=== PATIENT | female | born 1965 | race Caucasian/White ===

== ENCOUNTER 2021-10-05 10:17 | Outpatient (REF) | payer BC, SELFPAY ==
[2021-10-05 12:18] LABS: Mean Platelet Volume 11.3 fL (9.4-12.3); PLT CLUMP 1; SCAN SMEAR FLAG 1
[2021-10-05 12:20] LABS: Basophils Absolute Auto 0.1 X10*3/uL (0.0-0.2); Basophils Percent Auto 0.9 % (0-2); Eosinophils Absolute Auto 0.5 X10*3/uL (0.0-0.4); Eosinophils Percent Auto 6.4 % (0-4); Hematocrit 39.4 % (37.0-47.0); Imm Gran Abs Auto 0.04 X10*3/uL (0.00-0.03); Imm Gran Pct Auto 0.5 % (0.0-0.4); Lymphocytes Absolute Auto 2.2 X10*3/uL (1.2-4.9); Lymphocytes Percent Auto 28.3 % (20-40); MANUAL DIFF FLAG SCAN; Mean Corpuscular Hemoglobin 30.4 pg (27.0-33.0); Mean Corpuscular Volume 92.1 fL (80.0-98.0); Monocytes Absolute Auto 0.6 X10*3/uL (0.1-1.2); Monocytes Percent Auto 7.6 % (2-11); Neutrophils Absolute Auto 4.3 x10*3/uL (2.0-8.3); Neutrophils Percent Auto 56.3 % (45-73); Red Blood Count 4.28 X10*6/uL (4.20-5.50); Red Cell Distribution Width 12.2 % (11.0-16.0)
[2021-10-05 12:22] LABS: Platelet Count 235 X10*3/uL (160-400); White Blood Count 7.6 X10*3/uL (4.8-10.8)
[2021-10-05 12:38] LABS: D Dimer High Sensitivity < 150 NG/ML
[2021-10-05 12:43] LABS: SLIDE REVIEW VERIFIED
[2021-10-05 14:19] LABS: Anion Gap 12 (12-20); Blood Urea Nitrogen 8 mg/dL (9-16); Calcium 9.8 mg/dL (8.4-10.2); Carbon Dioxide 28 mmol/L (22-29); Chloride 105 mmol/L (96-108); Estimated Glomerular Filt Rate > 60; Glucose Random 94 mg/dL (60-115); Potassium 4.2 mmol/L (3.3-5.1); Sodium 141 mmol/L (135-145)
[2021-10-07 06:06] LABS: Immunoglobulin E 8 kU/L (<OR=114)
[2021-10-10 15:01] LABS: Cyclic Citrullinated Peptide <16 UNITS
[2021-10-12 06:42] LABS: Angiotensin Converting Enzyme 55 U/L (9-67)
== END 2021-10-05 10:18 | disposition home or self-care (01) ==
LOC: HO.LAB 10:17
PROVIDERS: PCP Internal Medicine; Visit Provider Hospitalist
DX: R06.00 Dyspnea, unspecified (principal); I42.8 Other cardiomyopathies; G47.33 Obstructive sleep apnea (adult) (pediatric); Z99.89 Dependence on other enabling machines and devices; Z79.899 Other long term (current) drug therapy
CPT/HCPCS: 36415; 80048; 82164; 82785; 85025; 85379; 86200

== ENCOUNTER 2021-11-07 12:36 | Outpatient (REF) | payer BC, SELFPAY ==
--- NOTE | 2021-11-07 | PFT_ITS ---
FLOWS: FEV1 97% of predicted at 2.54 L. FVC 90% of predicted at 2.99 L. FEV1 to FVC ratio of 0.85. No bronchodilator response. LUNG VOLUMES: Total lung capacity 96% of predicted at 4.74 L. Residual volume 91% of predicted at 1.68. Slow vital capacity 99% of predicted at 3.06 L. Expiratory reserve volume 50% of predicted at 0.46 L. Diffusion capacity is mildly decreased. IMPRESSION: No obstructive or restrictive ventilatory defect. No bronchodilator response. Isolated defect in diffusion capacity suggests underlying pulmonary parenchymal or vascular disease. Clinical correlation is advised. MD OSVALDO Olmstead/MODL / [id number]
== END 2021-11-07 12:37 | disposition home or self-care (01) ==
LOC: HO.RESP 12:36
PROVIDERS: PCP Internal Medicine; Visit Provider Hospitalist
DX: R06.00 Dyspnea, unspecified (principal)
CPT/HCPCS: 94060; 94727; 94729

== ENCOUNTER 2022-04-06 11:01 | Outpatient (REF) | payer BC, SELFPAY ==
--- NOTE | ~2022-04-06 | XR_ITS ---
EXAMINATION: XR CHEST CLINICAL INFORMATION: Dyspnea COMPARISON: None TECHNIQUE: 2 views of the chest were obtained. FINDINGS: The lungs are well-expanded. Heart size and pulmonary vascularity is normal. No gross bony abnormality seen. XR/XR chest 2V IMPRESSION: Unremarkable chest exam.
== END 2022-04-06 11:02 | disposition home or self-care (01) ==
LOC: HO.XRAY 11:01
PROVIDERS: PCP Internal Medicine; Visit Provider Hospitalist
DX: R06.00 Dyspnea, unspecified (principal); G47.33 Obstructive sleep apnea (adult) (pediatric); I42.8 Other cardiomyopathies; R94.2 Abnormal results of pulmonary function studies; Z99.89 Dependence on other enabling machines and devices
CPT/HCPCS: 71046; 94618

== ENCOUNTER → 2022-06-25 19:30 | Outpatient (REF) | payer BC, SELFPAY | LOC: HO.SL 19:30 | PROVIDERS: PCP Internal Medicine; Visit Provider Hospitalist | DX: G47.33 Obstructive sleep apnea (adult) (pediatric) (principal) | CPT/HCPCS: 95810 ==

== ENCOUNTER → 2023-01-12 10:23 | Outpatient (BNVA) | payer BC, SELFPAY | PROVIDERS: PCP Internal Medicine; Visit Provider Hospitalist | DX: Z13.89 Encounter for screening for other disorder (principal) ==

== ENCOUNTER 2023-01-29 09:59 | Outpatient (RCR) | payer BC, SELFPAY ==
[2023-01-29 10:40] VITALS: BP 100/58; PULSE 67
[2023-02-01 07:19] VITALS: BP 96/44
[2023-02-06 07:14] VITALS: BP 100/52; BP 96/54
[2023-02-08 07:25] VITALS: BP 120/60; BP 124/68
[2023-02-15 09:31] VITALS: BP 102/56; BP 114/68
[2023-02-20 07:30] VITALS: BP 108/60; BP 110/60
[2023-02-27 07:05] VITALS: BP 114/66; BP 114/68
[2023-03-01 07:35] VITALS: BP 110/50; BP 110/60
[2023-03-08 10:32] VITALS: BP 110/60; BP 115/55
[2023-03-13 07:33] VITALS: BP 110/50; BP 125/65
[2023-03-20 07:24] VITALS: BP 112/60; BP 112/62
--- NOTE | 2023-03-26 10:22 | MHC.PR.IN ---
[address] [phone] F: [phone] Pulmonary Rehabilitation Individual Treatment Plan Sommer Quintana is a 57 year old (F) who was referred to the Pulmonary Rehabilitation program by Tr Augustine. This patient who has a primary diagnosis of Post Covid syndrome will begin pulmonary rehabilitation with monitored exercise and education to optimize both physical and social performance, autonomy, increase strength and endurance, and control dypsnea. The following information was gathered from the patient: Smoking History Current smoking status: Never Smoked Years smoked: only smoke for 1 year Last time smoked: Quit Date: Assistance with quitting needed: Past Medical History Medical History: Cardiac Disorders Sleep Apnea Chronic Sinus Infection Depression Anxiety Other Surgeries: No Past Pulmonary Hospitalizations # of hospitalizations in the past year: 0 # of ER vists due to breathing troubles in the past year: 0 Current Pulmonary Medications Allergy History Allergies: Amoxicillin,Bacitracin,Augmentin,Cipro,Latex,Neomycin,Neosporin,Sulfa Current Oxygen Use Supplemental Oxygen Device Used: None Liter flow: How often: N/A Pulmonary History Cough: Yes: during allergy season Sputum: No Sleep device: Yes Other pulmonary devices: Peak flow meter: No Nebulizer: No Suction: No Ventilator: No Secretion clearance: No PEP: No Influenza vaccine: No Pneumonia vaccine: No Patient Questionaire Scores MRC Dyspnea Scale (mRC): 1 CAT Score: na PHQ-9 Score: 11 Pulmonary Function Test and Vital Signs Pulmonary Function Test Date of PFT 11/07/21 FVC Actual 3.02% FVC Predicted 3.31% FEV1 Actual 2.49% FEV1 Predicted 2.59% FEV1/FVC Actual 82% FEV1/FVC Predicted 79% DLCO 15.11 Vital Signs Heart Rate 67 Blood Pressure 100/58 SpO2 96% Respiratory Rate 11 unlabored Six Minute Walk Test Supplemental Oxygen O2 L/min: FiO2: Resting Vitals SpO2: 96% BP: 100/58mmHg HR: 67 bpm Total Distance 886 Number/ Time of Rests (sec) 0 SIA 1 METS 2.28 SpO2 94 HR (bpm) 88 MPH 1.66 Meters/Minute 45 Post-walk Vitals SpO2: 96 BP: 110/60 HR: 66 Performance Observations Walked at a moderate pace without stopping Pulmonary Rehabilitation Plan Topic Problem Goal Plan Comment Education Knowledge deficit of disease self management strategies Exacerbation prevention and management Home exercise program Hypoxia N/A, no s/s of hypoxemia Psychosocial Anxiety Depression Review screening results On medications currently Has trouble falling and staying asleep or sleeping too much, has trouble concentrating, Feeling tired has little energy, she feels bad about herself, she feels she is a failure and has let herself and her family down Activities of Daily Living ADL performance with pacing and pursed lip breathing Educate on pursed lip breathing and pacing with stairs and activity Nutrition & Weight Management Obese BMI 19 to 30 Lose weight during program Prevent further weight gain Education re ongoing weight monitoring BMI 34.3, Patients goal is to lose weight Tobacco Managment NA Patient states she smoked for one year only Medication N/A, pt reports compliance w/ prescribed medications Inhaled Medication N/A Secretion Management N/A, pt able to self manage secretions Exercise & Fitness Decreased strength & endurance Knowledge deficit of exercise guidelines & safety No regular exercise Pulmonary Rehab 2-3x/week Weight or resistance training 2-3x/week Aerobic Exercise: 30-60mins x 9 weeks Review benefits & core components of exercise program Review how to measure and monitor dyspnea level Review exercise safety guidelines Review frequency and duration of exercise Review exercise intensity SIA RPD 3-4/10 Review home exercise guidelines 5 minute warmup UBE Diabetes Management Does patient have DM?: No Diabetes Type: Current Blood Glucose Level: Current A1C Level: Self Check: Patient's Goals and Concerns Lose weight. Rn Lab Review I have reviewed the outcome assessment, treatment plan, goals, and problem list. The treatment plan and goals support the patient's needs and abilities, and thereby recommend that the exercise plan be completed as documented. Special precautions or modifications to the treatment plan include:
[2023-03-27 09:22] VITALS: BP 104/64; BP 112/58
[2023-03-27 09:26] VITALS: BMI 196.0
--- NOTE | 2023-03-27 09:43 | MHC.PR.RE ---
[address] [phone] F: [phone] Pulmonary Rehabilitation Reassessment Sommer Quintana is a 57 year old (F) who was referred to the Pulmonary Rehabilitation program by Tr Augustine. This patient who has a primary diagnosis of Post Covid syndrome has completed 11 sessions of the pulmonary rehabilitation program thus far with monitored exercise and education to optimize both physical and social performance, autonomy, increase strength and endurance, and control dypsnea. They were evaluated on 03/27/23. Reassessment Type: 60-day reassessment Topic Education/ Progress Progress Comments Education Demonstrates disease self-management strategies Using medications as directed Demonstrates strategies for anxiety and depression management Pt states she is feeling anxiety due to her fear of SOB being caused by something other than post covid. RT gave Thorough explanation/education of her PFT and lung volumes due to post COVID. Pt given education and demonstration on breathing techniques specific to post covid. Pt goals to progess on time/ METS during program Hypoxia Current oxygen Use: Room Air Pt does not use supplemental O2 at this time. Psychosocial PHQ-9 Score: 12 Score increased due to anxiety on lung disease. Living with lung disease education worksheet reviewed with patient. pt goals for coping with stress and anxiety are exercise, weight loss focus, meditation. Activities of Daily Living Management of ADL with Control of Dyspnea Progressing Pt progressing nicely with increased METs and exercise time. Nutrition & Weight Management Current weight: 200 BMI: 196 Weight change: Weight Loss 4lb weight loss from exercise Progressing Tobacco Stages of Change: Prepare for action Tobacco Use: Cigerettes/Day: Any nicotine replacement: Any cessation medication: Smoking quit date: Smokeless tobacco use and amount: Met Medication Met, taking 100% of time Met Inhaled Medication Patient verbalizes correct technique of: MDI: DPI: SMI: NEBULIZER: Pt does not used inhaled medications at this time. Met Secretion Management Patient provides adequate return demonstration of: Controlled cough: Yes Gomez cough: Acapella/ PEP Device: No CPT: No Sputum management: Met Exercise & Fitness Aerobic Exercise Frequency: 2-3X weekly Target heart range: 125 Heart rate range: 101-134 SpO2 Range: 92-100 SIA RPD: 0-3 Time (minutes): 50 minutes O2 use with exercise: Room air Current HEP: UBE L1.2 21 minutes RPD 0.5 2X weekly Recumbent bike L1.2 RPD 0.5 2x weekly Tether bands (yellow) 15 minutes 2X weekly 5 minute warmup 5 minute cooldown Pt has increased time from beginning the program at 33 minutes to 57 minutes 2X weekly. Pt given home program from long goods drier to perform on off days. Pt instructed to perform 5 minute warm up prior to exercise and 5 minute cooldown at the end of her workout. Pt has progressed on Mets and continues to, at each session Progressing Pediatrics Physician Review I have reviewed the outcome re-assessment and treatment plan. The treatment plan and goals support the patient's needs and abilities, and thereby recommend that the exercise plan be completed as documented. Special precautions or modifications to the treatment plan include:
[2023-03-29 07:57] VITALS: BP 98/54
[2023-04-03 08:40] VITALS: BP 110/60; BP 98/52
[2023-04-05 11:29] VITALS: BP 102/56; BP 110/68
[2023-04-10 08:47] VITALS: BP 100/52; BP 102/58
[2023-04-12 08:24] VITALS: BP 106/56; BP 92/58
[2023-04-17 08:34] VITALS: BP 108/42
[2023-04-19 08:19] VITALS: BP 102/54; BP 102/58
[2023-04-19 08:29] VITALS: BMI 194.0
--- NOTE | 2023-04-19 08:34 | MHC.PR.RE ---
[address] [phone] F: [phone] Pulmonary Rehabilitation Reassessment Sommer Quintana is a 57 year old (F) who was referred to the Pulmonary Rehabilitation program by Tr Augustine. This patient who has a primary diagnosis of Post Covid syndrome has completed 18 sessions of the pulmonary rehabilitation program thus far with monitored exercise and education to optimize both physical and social performance, autonomy, increase strength and endurance, and control dypsnea. They were evaluated on 04/19/23. Reassessment Type: 60-day reassessment Topic Education/ Progress Progress Comments Education Demonstrates disease self-management strategies Using medications as directed Demonstrates strategies for anxiety and depression management Progressing. Pt educated on nutrition DASH diet. RT gave Thorough explanation/education of her PFT and lung volumes due to post COVID. Pt given education and demonstration on breathing techniques specific to post covid. Pt goals to progess on time/ METS during program Hypoxia Current oxygen Use: Room air Pt does not use supplemental O2 at this time. Psychosocial PHQ-9 Score: 12 PT has recently started going to religious and states that has helped her and she now uses this as a coping technique. Activities of Daily Living Management of ADL with Control of Dyspnea Progressing Pt progressing nicely with increased METs and exercise time. Nutrition & Weight Management Current weight: 200 BMI: 194 Weight change: Weight Loss 4lb weight loss from exercise Progressing Tobacco Stages of Change: Prepare for action Tobacco Use: Cigerettes/Day: Any nicotine replacement: Any cessation medication: Smoking quit date: Smokeless tobacco use and amount: Pt is a non smoker Medication Met, taking 100% of time Inhaled Medication Patient verbalizes correct technique of: MDI: N/A DPI: N/A SMI: N/A NEBULIZER: N/A Pt does not used inhaled medications at this time. Secretion Management Patient provides adequate return demonstration of: Controlled cough: Yes Gomez cough: Acapella/ PEP Device: No CPT: No Sputum management: Met Exercise & Fitness Aerobic Exercise Frequency: 2-3X weekly Target heart range: 125 Heart rate range: 101-134 SpO2 Range: 92-100 SIA RPD: 0-3 Time (minutes): 50 minutes O2 use with exercise: Room air Current HEP: UBE L1.3 20 minutes RPD 0.5 2X weekly Recumbent bike L1.3 RPD 0.5 2x weekly Tether bands (yellow) 15 minutes 2X weekly 5 minute warmup 5 minute cooldown Pt increased level on UBE this week. Pt states she has been less SOB this week, and feeling great. Councilor Review I have reviewed the outcome re-assessment and treatment plan. The treatment plan and goals support the patient's needs and abilities, and thereby recommend that the exercise plan be completed as documented. Special precautions or modifications to the treatment plan include:
[2023-04-23 12:35] VITALS: BP 88/40; BP 90/56
[2023-04-26 15:34] VITALS: BP 104/54; BP 92/52
[2023-05-01 10:31] VITALS: BP 124/58
[2023-05-03 10:34] VITALS: BP 100/62
[2023-05-08 07:56] VITALS: BP 100/52; BP 94/46
[2023-05-10 08:09] VITALS: BP 114/60; BP 98/40
[2023-05-15 09:31] VITALS: BP 98/52; BP 98/54
[2023-05-15 12:53] VITALS: BMI 34.3
--- NOTE | 2023-05-15 12:59 | MHC.PR.RE ---
[address] [phone] F: [phone] Pulmonary Rehabilitation Reassessment Sommer Quintana is a 57 year old (F) who was referred to the Pulmonary Rehabilitation program by Tr Augustine. This patient who has a primary diagnosis of Post Covid syndrome has completed 25 sessions of the pulmonary rehabilitation program thus far with monitored exercise and education to optimize both physical and social performance, autonomy, increase strength and endurance, and control dypsnea. They were evaluated on 05/15/23. Reassessment Type: 90-day reassessment Topic Education/ Progress Progress Comments Education Demonstrates disease self-management strategies Using medications as directed Demonstrates strategies for anxiety and depression management Progressing. Pt educated on nutrition DASH diet. RT gave Thorough explanation/education doing daily activites with least amount of exertion. Pt given education and demonstration on breathing techniques specific to post covid. Pt goals lose 4 lbs prior to discharge. Plan to stop eating dessert at least once a week. Continue to work on pursed lip breathing, to work thorugh sob. Hypoxia Current oxygen Use: Room air Pt does not use supplemental O2 at this time. Psychosocial PHQ-9 Score: 4 Pt states she is feeling really good, and starting to be more active since joining rehab. Activities of Daily Living Management of ADL with Control of Dyspnea Progressing Pt progressing nicely with increased METs and exercise time. Nutrition & Weight Management Current weight: 200 BMI: 34.3 Weight change: Weight Loss 4lb weight loss from exercise Progressing Plan to eat one less dessert a week. Goal to lose 4 lbs prior to discharge Tobacco Stages of Change: Prepare for action Tobacco Use: Cigerettes/Day: Any nicotine replacement: Any cessation medication: Smoking quit date: Smokeless tobacco use and amount: Pt is a non smoker Medication Met, taking 100% of time Inhaled Medication Patient verbalizes correct technique of: MDI: N/A DPI: N/A SMI: N/A NEBULIZER: N/A Pt does not used inhaled medications at this time. Secretion Management Patient provides adequate return demonstration of: Controlled cough: Yes Gomez cough: Acapella/ PEP Device: No CPT: No Sputum management: Met Exercise & Fitness Aerobic Exercise Frequency: 2-3X weekly Target heart range: 125 Heart rate range: 101-134 SpO2 Range: 92-100 SIA RPD: 0-3 Time (minutes): 55 minutes O2 use with exercise: Room air Current HEP: UBE L1.4 7 minutes RPD 0.5 2X weekly Recumbent bike L1.3 RPD 0.5 2x weekly 20 minutes Treadmill L1.5 8 minutes Free weights 2lbs 4 sets of 10 Tether bands (yellow) 15 minutes 2X weekly 5 minute warmup 5 minute cooldown Pt increased level on UBE this week. Pt states she has been less SOB this week, and feeling great. Sales Office Manager Review I have reviewed the outcome re-assessment and treatment plan. The treatment plan and goals support the patient's needs and abilities, and thereby recommend that the exercise plan be completed as documented. Special precautions or modifications to the treatment plan include:
[2023-05-17 08:10] VITALS: BP 92/50; BP 92/52
[2023-05-22 08:58] VITALS: BP 108/46; BP 96/50
[2023-05-24 08:37] VITALS: BP 108/58; BP 128/60
[2023-05-29 09:15] VITALS: BP 108/54; BP 132/68
[2023-05-31 10:58] VITALS: BP 104/60; BP 104/62
--- NOTE | 2023-06-05 08:55 | MHC.PR.DC ---
[address] [phone] F: [phone] Pulmonary Rehabilitation Discharge Sommer Quintana is a 57 year old (F) who was referred to the Pulmonary Rehabilitation program by Tr Augustine. This patient who has a primary diagnosis of Post Covid syndrome has completed 32 sessions of the pulmonary rehabilitation program with monitored exercise and education to optimize both physical and social performance, autonomy, increase strength and endurance, and control dypsnea. They were evaluated on 06/05/23. Discharge summary and tests are below. Initial MRC Score: 1 Discharge MRC Score: 1 Six Minute Walk Test Initial 6MWT Discharge 6MWT Supplemental Oxygen O2 L/min: RA FiO2: O2 L/min: RA FiO2: Resting Vitals SpO2: 96% BP: 100/58mmHg HR: 67 bpm SpO2: 97% BP: 122/72mmHg HR: 78 bpm Total Distance (ft) [id number] Number/ Time of Rests (sec) 0 0 SIA 1 2 Walk Vitals SpO2: 94 HR: 88 SpO2: 93 HR: 89 Post-Walk Vitals SpO2: 94 BP: 110/60 HR: 89 SpO2: 96 BP: 120/80 HR: 89 Performance Observations Walked at a moderate pace without stopping Pt walked unassisted at a moderate pace for 6 minutes. Pt did not take breaks. Pt RPD 1-2 Exercise Assessment on UBE: Pre-exercise Post-exercise SpO2 94 95 Heart Rate 89 88 SIA 3 1 METS 1.2 Exercise Assessment on Nustep: Pre-exercise Post-exercise SpO2 94 95 Heart Rate 88 88 SIA 3 2 METS 1.24 2.5 Exercise Assessment on Recumbent Bike: Pre-exercise Post-exercise SpO2 94 95 Heart Rate 75 77 SIA 3 2 METS 1.8 2.5 Topic Education/Progress Progress Comments Education Demonstrates disease self-management strategies Using medications as directed Mobilizes secretions successfully Demonstrates strategies for anxiety and depression management Progressing. Pt educated on nutrition DASH diet. RT gave Thorough explanation/education of her PFT and lung volumes due to post COVID. Pt given education and demonstration on breathing techniques specific to post covid. Pt goals lose 4 lbs prior to discharge. Plan to stop eatding dessert at least once a week. Continue to work on pursed lip breathing, to work thorugh sob. Hypoxia Current oxygen Use: RA Pt does not use supplemental O2 at this time. Psychosocial PHQ-9 Score: 4 Pt states she is feeling really good, and starting to be more active since joining rehab. Activities of Daily Living Management of ADL with Control of Dyspnea Progressing MEt. Pt increased METs and exercise time. Nutrition and Weight Managment Current weight: 203.72 BMI: 34.3 Weight change: Weight Gain 4lb weight loss from exercise Progressing Pt will continue to count calories and choose 1 day a week to skip a dessert. Tobacco Stages of Change: Prepare for action Tobacco Use: Cigerettes/Day: Any nicotine replacement: Any cessation medication: Smoking quit date: Smokeless tobacco use and amount: Pt is a non smoker Medications Met, taking 100% of time Inhaled Medications Patient verbalizes correct technique of: MDI: N/A DPI: N/A SMI: N/A NEBULIZER: N/A Pt does not used inhaled medications at this time. Secretion Management Patient provides adequate return demonstration of: Controlled cough: Yes Gomez cough: Acapella/ PEP Device: No CPT: No Sputum management: Met Exercise and Fitness Aerobic Exercise Frequency: 2-3X weekly Target heart range: 125 Heart rate range: 101-134 SpO2 Range: 92-100 SIA RPD: 0-3 Time (minutes): 55 minutes O2 use with exercise: Room air Current HEP: UBE L1.4 7 minutes RPD 0.5 2X weekly Recumbent bike L1.3 RPD 0.5 2x weekly 20 minutes Treadmill L1.5 8 minutes Free weights 2lbs 4 sets of 10 Tether bands (yellow) 15 minutes 2X weekly 5 minute warmup 5 minute cooldown Pt increased level on UBE this week. Pt states she has been less SOB this week, and feeling great. Discharge Assessment: Sommer has been highly motivated throughout the program. In the beginning she was hesitant to increase mets and levels for fear of being short of breath. Throughout our time she has learned and utilized her breathing techniques. She has learned about how her lungs function and how to feels better with her ADL's. She has continuously progressed and opened up with our staff. Discharge Reason: Pt has successfully completed our program. Discharge Recommendation: : Maintenance program.
== END 2023-06-06 07:38 | disposition home or self-care (01) ==
LOC: HO.PR 09:59
PROVIDERS: PCP Internal Medicine; Visit Provider Hospitalist
DX: R06.00 Dyspnea, unspecified (principal); U07.1 COVID-19
CPT/HCPCS: 94625

== ENCOUNTER 2023-06-05 08:44 | Outpatient (AMB) | payer BC, SELFPAY ==
[2023-06-05 09:08] VITALS: PULSE 75; O2SAT 94; BMI 34.3
--- NOTE | 2023-06-05 09:08 | MHC.OFFVIS ---
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 Required: No Allergies amoxicillin [From Augmentin] Allergy (Severe, Verified 06/05/23 09:09) Diarrhea bacitracin Allergy (Severe, Verified 06/05/23 09:09) Rash ciprofloxacin [From Cipro] Allergy (Severe, Verified 06/05/23 09:09) Ankle Pain clavulanic acid [From Augmentin] Allergy (Severe, Verified 06/05/23 09:09) Diarrhea latex Allergy (Severe, Verified 06/05/23 09:09) Rash neomycin [From Neosporin Plus PainRelief(petra)] Allergy (Severe, Verified 06/05/23 09:09) Rash polymyxin B [From Neosporin Plus PainRelief(petra)] Allergy (Severe, Verified 06/05/23 09:09) Rash pramoxine [From Neosporin Plus PainRelief(petra)] Allergy (Severe, Verified 06/05/23 09:09) Rash Sulfa (Sulfonamide Antibiotics) Allergy (Severe, Verified 06/05/23 09:09) Stomach Pain HPI HPI Comments History of Present Illness Details The patient is a 57-year-old woman with a known history of nonischemic cardiomyopathy with an EF of 45-50% in addition to obstructive sleep apnea on CPAP who apparently during the summer started noticing that she was having increasing dyspnea. Sometimes she was actually holding her breath For unclear reason. Her symptoms became progressively worse. She went to see a primary care doctor. In addition to that she went to urgent care. It was recommended that if she had worsening symptoms that she go to the ER. She did go to the [facility]. There they did blood work including a D-dimer that was negative. The patient is able to be discharged home after her ruling out for myocardial infarction. 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 The patient did have an echocardiogram without any significant changes from her baseline cardiomyopathy along with normal estimated right ventricular systolic pressures. She also underwent a 24 hour Holter monitor without any significant findings. She continues on a cardioprotective medications and continues to be symptomatic. Therefore she was referred to Pulmonary. The patient has not had any pulmonary function studies. During the visit we did go for 6 minute walk test with the patient desaturated down to about 94% with activity. The patient did not qualify for oxygen although her oxygen supplementation did decrease. She also states that she does use CPAP. She did have an overnight oximetry done while wearing her CPAP and she was documented to be hypoxic spending almost an hour below 88%. Therefore her machine was adjusted and he was repeated and no further hypoxia was documented. The patient has not had a CPAP BiPAP titration study. The question of Pickwickian syndrome came up based on the fact that she is overweight and did have evidence of hypoxia while on CPAP. The patient also has known allergies. She was tested many years ago. Patient does not use any inhalers at this time. At this point we will request additional data before given her medications. I do not want to start medications in view of her underlying cardiac issue. 09/13/2022 the patient has a telephone visit today. She was exposed to COVID-19 so therefore she opted on not come in. She is going to be monitoring closely her symptoms. Still continues to complaint of shortness of breath with activity. [id number] severity. Again we talked about the cardiopulmonary exercise stress test demonstrating that she has a decreased pulmonary reserve. Although her air over capacity is reassuring. To some degree has to do with her ability to maintain her minute ventilation. Need to consider underlying deconditioning or neuromuscular conditions. The goal will be to start a an exercise program. Options would be to participate online through the pulmonary wellness or work closely with a bale opener or orthotics prosthetics technician. in the meantime the patient did start her no visual. It appears to be helping her significantly when it comes to her daytime activity. She did increase the dose to 150 mg because the 100 mg was not as effective. Therefore will go ahead and send her new prescription for the 150 mg tablet. This is treating the persistent drowsiness even with appropriate CPAP therapy. She does continue to use her CPAP regularly. The CPAP therapy has been affecting beneficial although again she still continues to have that daytime drowsiness afterwards. To some degree, we may likely dealing with post COVID syndrome with her constellation of symptoms and findings. 01/12/2023 the patient is here for a pulmonary follow-up visit. Patient still struggling with her dyspnea exertion. At this point the patient is also been evaluated at a alternative health clinic. she was provided with additional therapies. She will be starting next week. In the meantime she has been taking the Nuvigil. Denies visual was helpful. Although after few months the effectiveness was not significant. At this point will continue with current dose specially since she is starting a new therapy. Can also consider increasing it in the future. The patient did undergo Valerie a full workup of her shortness of breath. I do believe that is related to post COVID. The patient needs to start a pulmonary rehabilitation at this time to treat her for the COVID-19 sequela. 06/05/2023 the patient is here for pulmonary follow-up visit. Overall she is feeling better from a respiratory status. She has completed the a week pulmonary rehabilitation program and she felt she did improved. In the meantime she stop beneficial as she was doing other PAP type therapies. She is trying the the more holistic approach to her therapy. The patient continues use her CPAP. CPAP therapy continues to be affecting beneficial. I did adjust her pressures just slightly. Her apnea scores are good with an AHI of 1.5. Patient does have nasal pillows and she is tolerating those well. She stop beneficial and she is doing fairly well. She still has some chronic fatigue and post COVID syndrome. She also has some all trial just a mild lot just at times. The patient had a complete workup with her primary care regarding connective tissue conditions. 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 Thyroid disease Social History (Updated 10/05/21 @ 10:47 by PRIYA De Guzman) Household Members: Other Household Members Other:: merline Alvarado Patient Tobacco Use Status: Former Tobacco user Tobacco use type: Cigarette Years Smoked: only smoke for 1 year Second Hand Smoke Exposure: No Review of Systems Const Reports fatigue and Denies night sweats ENT Denies change in voice, Denies lip swelling, Denies mouth pain, Reports nasal congestion, Reports nasal discharge and Denies tongue swelling Card Denies chest pain, Denies dyspnea and Reports dyspnea on exertion Resp Reports cough, Denies dyspnea and Reports dyspnea on exertion GI Denies abdominal pain Musc Reports myalgias Neuro Denies Neuro-related abnormal movements Psych Denies no additional complaints Endo Reports fatigue Isaac/Lymph Denies easy bleeding and Denies lymphadenopathy Aller/Immun Denies lip swelling and Denies tongue swelling Physical Exam Vital Signs: Last Vital Signs Pulse 75 06/05/23 09:08 Pulse Ox 94 06/05/23 09:08 Oxygen Delivery Method Room Air 06/05/23 09:08 BMI result Body Mass Index 34.3 Const General: alert Neck Neck: Yes normal visual inspection, Yes full ROM and Yes no lymphadenopathy Chest Chest palpation & inspection: normal inspection of the chest Resp Auscultation: clear to auscultation bilaterally, no rhonchi and no wheezes Cardio Rate: regular rate Rhythm: regular rhythm Heart sounds: S1 normal heart sound present and S2 normal heart sound present GI Palpation (GI): Soft to palpation and nontender Auscultation: normal bowel sounds Skin General skin exam: rashes and/or lesions noted Assessment & Plan Assessment & Plan (1) Dyspnea: Code(s): R06.00 - Dyspnea, unspecified Qualifiers: Dyspnea type: dyspnea on exertion Qualified Code(s): R06.09 - Other forms of dyspnea (2) PETROS on CPAP: Comment: AHI is 1-2 Code(s): G47.33 - Obstructive sleep apnea (adult) (pediatric); Z99.89 - Dependence on other enabling machines and devices (3) Non-ischemic cardiomyopathy: Code(s): I42.8 - Other cardiomyopathies (4) Abnormal PFTs (pulmonary function tests): Code(s): R94.2 - Abnormal results of pulmonary function studies (5) Excessive daytime sleepiness: Comment: After effective PAP therapy. Now off Nuvigil. Will try holistic approach Code(s): G47.19 - Other hypersomnia (6) [id number] syndrome: Code(s): U09.9 - Post COVID-19 condition, unspecified Plan -continue APAP -exercise routine -weight management -F/U 12 months Coding Level of Care Code Est Pt Level 4 (07501) Diagnoses Dyspnea R06.09 Dyspnea type: dyspnea on exertion PETROS on CPAP G47.33; Z99.89 Non-ischemic cardiomyopathy I42.8 Abnormal PFTs (pulmonary function tests) R94.2 Excessive daytime sleepiness G47.19 [id number] syndrome U09.9 Time Spent (min) 18
== END 2023-06-05 09:50 | disposition home or self-care (01) ==
PROVIDERS: PCP Internal Medicine; Visit Provider Hospitalist
DX: R06.09 Other forms of dyspnea (principal); G47.33 Obstructive sleep apnea (adult) (pediatric); Z99.89 Dependence on other enabling machines and devices; I42.8 Other cardiomyopathies; R94.2 Abnormal results of pulmonary function studies; G47.19 Other hypersomnia; U09.9 Post COVID-19 condition, unspecified
CPT/HCPCS: 99214

== ENCOUNTER → 2023-06-05 08:44 | Outpatient (BNVA) | payer BC, SELFPAY ==
[2023-05-15 12:53] VITALS: BMI 34.3
== END ==
PROVIDERS: Visit Provider Hospitalist
DX: U07.1 COVID-19 (principal); R06.00 Dyspnea, unspecified